=== PATIENT | female | born 1955 | race Caucasian/White ===

== ENCOUNTER 2020-01-02 11:06 | Emergency (ER) | payer MEDICARE | END 2020-01-02 12:50 | disposition home or self-care (01) | LOC: ERS 11:06 | DX: M54.5 Low back pain (principal); I10 Essential (primary) hypertension; F17.210 Nicotine dependence, cigarettes, uncomplicated; Z79.82 Long term (current) use of aspirin; X50.9XXA Other and unspecified overexertion or strenuous movements or postures, initial encounter | CPT/HCPCS: 99283 ==